=== PATIENT | male | born 1955 | race Caucasian/White ===

== ENCOUNTER 2017-05-07 06:05 | Emergency (ER) | payer BC ==
[~2017-05-07] VITALS: Ht 185.4 cm; Wt 105.7 kg
[~2017-05-07 06:05] MED LIST: AMLO10TA; OMEP20TA44; PLAVIX PO; TRIA25CA
[2017-05-07] MEDS ORDERED: SODIUM CHLORIDE 0.9% 500 ML IV ONE (09:15)
[2017-05-07] MEDS ORDERED: TETRACAINE HCL 0.5% OPTH(EYE) SOLN 4ML RIGHTEYE ONE (09:45)
[2017-05-07 09:58] VITALS: BP 124/75
== END 2017-05-07 10:41 | disposition short-term general hospital (02) ==
LOC: ER 06:06
DX: H54.61 Unqualified visual loss, right eye, normal vision left eye (principal); E78.5 Hyperlipidemia, unspecified; I10 Essential (primary) hypertension; Z79.01 Long term (current) use of anticoagulants; Z79.899 Other long term (current) drug therapy
CPT/HCPCS: 70450; 99285; J7030; 96360